=== PATIENT | female | born 1955 | race African-American/Black ===

== ENCOUNTER → 2016-10-01 | Outpatient (CLI) | payer BC ==
[2016-10-01 13:04] LABS: CHOLESTEROL 191.05 mg/dL (0-200); Direct HDL 62 mg/dL (>40); TRIGLYCERIDES 113 mg/dL (<150)
[2016-10-01 13:24] LABS: DIRECT LDL 103 mg/dL (<100)
[2016-10-02 08:41] LABS: HEPATITIS C VIRUS AB <0.1 s/co ratio (0.0-0.9)
[2016-10-05 02:36] LABS: E001-IGE CAT DANDER <0.10 kU/L (Class 0); E005-IGE DOG DANDER <0.10 kU/L (Class 0); G002-IGE BERMUDA GRASS <0.10 kU/L (Class 0); G006-IGE TIMOTHY GRASS <0.10 kU/L (Class 0); G010-IGE JOHNSON GRASS <0.10 kU/L (Class 0); G017-IGE BAHIA GRASS <0.10 kU/L (Class 0); I100-IGE COCKROACHAMERICAN <0.10 kU/L (Class 0); M001-IGE PENICILLIUM CHRYSOGEN <0.10 kU/L (Class 0); M002-IGE CLADOSPORIUM HERBARUM <0.10 kU/L (Class 0); M003-IGE ASPERGILLUS FUMIGATUS <0.10 kU/L (Class 0); M004-IGE MUCOR RACEMOSUS <0.10 kU/L (Class 0); M006-IGE ALTERNARIA ALTERNATA <0.10 kU/L (Class 0); M010-IGE STEMPHYLIUM HERBARUM <0.10 kU/L (Class 0); T001-IGE MAPLE/BOX ELDER <0.10 kU/L (Class 0); T003-IGE BIRCH SILVER <0.10 kU/L (Class 0); T006-IGE CEDAR MOUNTAIN <0.10 kU/L (Class 0); T007-IGE OAK WHITE <0.10 kU/L (Class 0); T008-IGE ELM AMERICAN (WHITE <0.10 kU/L (Class 0); T011-IGE MAPLE LEAF SYCAMORE <0.10 kU/L (Class 0); T041-IGE HICKORY WHITE <0.10 kU/L (Class 0); T211-IGE SWEET GUM <0.10 kU/L (Class 0); W001-IGE RAGWEED SHORT/COMMO <0.10 kU/L (Class 0); W006-IGE MUGWORT <0.10 kU/L (Class 0); W009-IGE PLANTAIN ENGLISH <0.10 kU/L (Class 0); W014-IGE PIGWEED ROUGH <0.10 kU/L (Class 0); W018-IGE SHEEP SORREL(DOCK) <0.10 kU/L (Class 0)
[2016-10-05 07:08] LABS: W020-IGE NETTLE <0.10 kU/L (Class 0)
== END ==
LOC: OD 11:04
PROVIDERS: ATTEND Nurse Practitioner
DX: J30.9 Allergic rhinitis, unspecified (principal); H65.91 Unspecified nonsuppurative otitis media, right ear; E78.5 Hyperlipidemia, unspecified; E55.0 Rickets, active; Z79.899 Other long term (current) drug therapy; J06.9 Acute upper respiratory infection, unspecified; Z11.59 Encounter for screening for other viral diseases
CPT/HCPCS: 36415; 80061; 82306; 82607; 86003; 86704; 86705; 86706; 86707; 86803; 87340; 87350

== ENCOUNTER → 2016-10-22 | Outpatient (CLI) | payer BC | LOC: OD 14:42 | PROVIDERS: ATTEND Neurological Surgery | DX: M25.521 Pain in right elbow (principal) ==

== ENCOUNTER → 2016-12-18 | Outpatient (CLI) | payer BC | LOC: WI 14:28 | PROVIDERS: ATTEND Advanced Practice Midwife | DX: Z12.31 Encounter for screening mammogram for malignant neoplasm of breast (principal) | CPT/HCPCS: 77067; G0202 ==

== ENCOUNTER → 2017-08-13 | Outpatient (CLI) | payer BC ==
[2017-08-13 10:17] LABS: HEMATOCRIT 39.2 % (36.0-47.0); HGB HCT DIFFERENCE -0.2; MEAN CORPUSCULAR HEMOGLOBIN 28.3 pg (27.0-33.4); MEAN CORPUSCULAR HGB CONC 33.2 g/dL (32.0-36.0); MEAN CORPUSCULAR VOLUME 86 fl (80-97); RED BLOOD COUNT 4.58 10^6/uL (3.72-5.28); RED CELL DISTRIBUTION WIDTH 16.2 % (11.5-14.0)
[2017-08-13 10:46] LABS: ALANINE AMINOTRANSFERASE 67 U/L (9-52); ALBUMIN 4.6 g/dL (3.5-5.0); ALKALINE PHOSPHATASE 101 U/L (38-126); ANION GAP 13 (5-19); ASPARTATE AMINO TRANSFERASE 38 U/L (14-36); BILIRUBIN,DIRECT 0.3 mg/dL (0.0-0.4); BILIRUBIN,TOTAL 0.5 mg/dL (0.2-1.3); BLOOD UREA NITROGEN 34 mg/dL (7-20); CALCIUM 10.4 mg/dL (8.4-10.2); CARBON DIOXIDE 30 mmol/L (22-30); CHLORIDE 102 mmol/L (98-107); CHOLESTEROL 273.74 mg/dL (0-200); Direct HDL 66 mg/dL (>40); GLUCOSE 99 mg/dL (75-110); POTASSIUM 4.3 mmol/L (3.6-5.0); SODIUM 145.4 mmol/L (137-145); TOTAL PROTEIN 7.3 g/dL (6.3-8.2); TRIGLYCERIDES 147 mg/dL (<150)
[2017-08-13 10:57] LABS: DIRECT LDL 177 mg/dL (<100)
== END ==
LOC: OD 09:34
PROVIDERS: ATTEND Nurse Practitioner
DX: E78.5 Hyperlipidemia, unspecified (principal); Z79.899 Other long term (current) drug therapy
CPT/HCPCS: 36415; 80053; 80061; 82306; 82607; 83036; 84443; 85027

== ENCOUNTER → 2018-12-07 | Outpatient (CLI) | payer BC ==
[2018-12-07 11:35] LABS: HEMATOCRIT 39.7 % (36.0-47.0); HEMOGLOBIN 13.5 g/dL (12.0-15.5); MEAN CORPUSCULAR HEMOGLOBIN 29.1 pg (27.0-33.4); MEAN CORPUSCULAR VOLUME 86 fl (80-97); PLATELET COUNT 207 10^3/uL (150-450); RED BLOOD COUNT 4.64 10^6/uL (3.72-5.28); RED CELL DISTRIBUTION WIDTH 15.5 % (11.5-14.0); WHITE BLOOD COUNT 4.1 10^3/uL (4.0-10.5)
[2018-12-07 12:07] LABS: ALANINE AMINOTRANSFERASE 45 U/L (9-52); ALBUMIN 4.7 g/dL (3.5-5.0); ALKALINE PHOSPHATASE 91 U/L (38-126); ANION GAP 6 (5-19); ASPARTATE AMINO TRANSFERASE 28 U/L (14-36); BILIRUBIN,DIRECT 0.1 mg/dL (0.0-0.4); BILIRUBIN,TOTAL 0.5 mg/dL (0.2-1.3); BLOOD UREA NITROGEN 26 mg/dL (7-20); CALCIUM 10.2 mg/dL (8.4-10.2); CARBON DIOXIDE 32 mmol/L (22-30); CHLORIDE 103 mmol/L (98-107); CHOLESTEROL 254.48 mg/dL (0-200); GLUCOSE 103 mg/dL (75-110); POTASSIUM 4.1 mmol/L (3.6-5.0); SODIUM 141.1 mmol/L (137-145); TOTAL PROTEIN 7.3 g/dL (6.3-8.2); TRIGLYCERIDES 177 mg/dL (<150)
[2018-12-07 12:20] LABS: DIRECT LDL 163 mg/dL (<100)
[2018-12-07 12:23] LABS: VLDL CHOLESTEROL 35.4 mg/dL (10-31)
== END ==
LOC: OD 10:32
PROVIDERS: ATTEND Nurse Practitioner
DX: Z00.00 Encounter for general adult medical examination without abnormal findings (principal); E78.5 Hyperlipidemia, unspecified; R73.03 Prediabetes; Z79.899 Other long term (current) drug therapy
CPT/HCPCS: 36415; 80053; 80061; 83036; 84443; 85027

== ENCOUNTER → 2018-12-24 | Outpatient (CLI) | payer BC | LOC: LAB 11:51 | PROVIDERS: ATTEND Nurse Practitioner Acute Care | DX: R21 Rash and other nonspecific skin eruption (principal) | CPT/HCPCS: 87070; 87205; 87250 ==

== ENCOUNTER → 2019-09-19 | Outpatient (CLI) | payer BC | LOC: OD 12:05 | PROVIDERS: ATTEND Nurse Practitioner | DX: I10 Essential (primary) hypertension (principal); R73.03 Prediabetes; Z79.899 Other long term (current) drug therapy | CPT/HCPCS: 36415; 83036 ==

== ENCOUNTER → 2019-11-14 | Outpatient (CLI) | payer BC ==
[2019-11-14 11:08] LABS: ABSOLUTE EOSINOPHILS # (AUTO) 0.1 10^3/uL (0.0-0.6); ABSOLUTE LYMPHOCYTES (AUTO) 0.8 10^3/uL (0.5-4.7); ABSOLUTE MONOCYTES (AUTO) 0.4 10^3/uL (0.1-1.4); ABSOLUTE NEUT (AUTO) 2.4 10^3/uL (1.7-8.2); EOSINOPHILS % (AUTO) 1.7 % (0-6); HEMOGLOBIN 13.6 g/dL (12.0-15.5); LYMPHOCYTES % (AUTO) 22.3 % (13-45); MEAN CORPUSCULAR VOLUME 86 fl (80-97); MONOCYTES % (AUTO) 11.3 % (3-13); PLATELET COUNT 202 10^3/uL (150-450); RED BLOOD COUNT 4.67 10^6/uL (3.72-5.28); SEGMENTED NEUTROPHILS % (AUTO) 63.7 % (42-78); TOTAL CELLS COUNTED % (AUTO) 100 %; WHITE BLOOD COUNT 3.8 10^3/uL (4.0-10.5)
[2019-11-14 11:37] LABS: ALBUMIN 4.6 g/dL (3.5-5.0); ALKALINE PHOSPHATASE 123 U/L (38-126); ANION GAP 8 (5-19); ASPARTATE AMINO TRANSFERASE 30 U/L (14-36); BILIRUBIN,DIRECT 0.3 mg/dL (0.0-0.4); BILIRUBIN,TOTAL 0.5 mg/dL (0.2-1.3); BLOOD UREA NITROGEN 30 mg/dL (7-20); CALCIUM 10.1 mg/dL (8.4-10.2); CARBON DIOXIDE 33 mmol/L (22-30); CHLORIDE 102 mmol/L (98-107); CHOLESTEROL 209.02 mg/dL (0-200); GLUCOSE 99 mg/dL (75-110); POTASSIUM 4.1 mmol/L (3.6-5.0); TOTAL PROTEIN 7.3 g/dL (6.3-8.2); TRIGLYCERIDES 103 mg/dL (<150)
[2019-11-14 11:48] LABS: DIRECT LDL 117 mg/dL (<100)
== END ==
LOC: OD 09:57
PROVIDERS: ATTEND Nurse Practitioner
DX: I10 Essential (primary) hypertension (principal); E78.5 Hyperlipidemia, unspecified; Z79.899 Other long term (current) drug therapy
CPT/HCPCS: 36415; 80053; 80061; 82306; 82607; 84443; 85025

== ENCOUNTER → 2020-01-21 | Outpatient (CLI) | payer BC ==
[2020-01-21 09:54] LABS: ANION GAP 8 (5-19); BLOOD UREA NITROGEN 28 mg/dL (7-20); CALCIUM 10.5 mg/dL (8.4-10.2); CARBON DIOXIDE 33 mmol/L (22-30); CHLORIDE 100 mmol/L (98-107); GLUCOSE 108 mg/dL (75-110); POTASSIUM 4.2 mmol/L (3.6-5.0)
== END ==
LOC: EEVIPCON 08:21 → OD 08:21
PROVIDERS: ATTEND Nurse Practitioner
DX: R73.03 Prediabetes (principal); Z79.899 Other long term (current) drug therapy
CPT/HCPCS: 36415; 80048; 83036